=== PATIENT | male | born 1995 | race Caucasian/White ===

== ENCOUNTER 2019-08-14 22:31 | Observation (INO) | payer BC, OTHER ==
[~2019-08-14] VITALS: Ht 177.8 cm; Wt 116.1 kg
[2019-08-14] MEDS ORDERED: ONDANSETRON 4 MG/2 ML (SDV) Z0FRAN IVP ONE (23:00)
[2019-08-14 23:08] LABS: EOSINOPHILS % (AUTO) 0 % (0-10); HEMATOCRIT 49 % (40-54); HEMOGLOBIN 16.5 G/DL (13.3-17.7); LYMPHOCYTES % (AUTO) 8 % (12-44); MEAN CORPUSCULAR HEMOGLOBIN 30 PG (25-34); MEAN CORPUSCULAR HGB CONC 34 G/DL (32-36); MEAN CORPUSCULAR VOLUME 89 FL (80-99); MONOCYTES % (AUTO) 4 % (0-12); NEUTROPHILS % (AUTO) 87 % (42-75); PLATELET COUNT 229 10^3/uL (130-400); RED CELL DISTRIBUTION WIDTH 12.1 % (10.0-14.5); WHITE BLOOD COUNT 11.9 10^3/uL (4.3-11.0)
[2019-08-14 23:09] LABS: BASOPHILS # (AUTO) 0.1 10^3/uL (0.0-0.1); BASOPHILS % (AUTO) 1 % (0-10); MONOCYTES # (AUTO) 0.5 X 10^3 (0.0-1.0); NEUTROPHILS # (AUTO) 10.3 X 10^3 (1.8-7.8)
--- NOTE | 2019-08-14 23:16 | ED Headache ---
General Chief Complaint: Head/Cervical Problems Stated Complaint: FEVER/BACK AND NECK PAIN Nursing Triage Note: Patient states that he began having a severe headache last night. Patient states the headache persisted throughout the night and today. Patient states he began having nausea, vomiting, low grade fever and dizziness. Patient rates his pain at a 10 on the 1-10 pain scale. Nursing Sepsis Screen: No Definite Risk (STACY CARO DO) History of Present Illness Date Seen by Provider: Aug 14, 2019 Time Seen by Provider: 23:00 Initial Comments Onset of headache, neck and upper back pain yesterday. Saw a chiropractor today for the neck pain and had it adjusted w no relief. Afterward, had onset of nausea and vomiting as well as low grade fever. Associated light sensitivity. Denies Hx of headaches or migraines. No known sick contacts. Denies recent injury or recent travel. Denies known exposure to Covid. (STACY CARO DO) Allergies and Home Medications Allergies Coded Allergies: No Allergy Information Available (Unverified , 08/14/19) Patient Home Medication List Home Medication List Reviewed: Yes (MASSIMO CAROEN Fransisco RAMSEY) Review of Systems Review of Systems Constitutional: see HPI, fever, malaise; No weakness Eyes: Pain (behind both eyes), Photophobia Ears, Nose, Mouth, Throat: no symptoms reported Respiratory: no symptoms reported; No cough, No short of breath Cardiovascular: No chest pain, No palpitations Gastrointestinal: No abdominal pain; loss of appetite, nausea, vomiting Musculoskeletal: see HPI, back pain (upper back), neck pain (worse w flexion) Skin: No change in color, No lesions, No rash Psychiatric/Neurological: Headache; Denies Numbness, Denies Paresthesia, Denies Seizure, Denies Weakness (MASSIMO CAROEN Fransisco RAMSEY) Past Sfjkudb-Kivhrg-Dxexxm Hx Past Med/Social Hx: Reviewed Nursing Past Med/Soc Hx (STACY CARO DO) Patient Social History Recent Foreign Travel: No Contact w/Someone Who Travel: No Recent Infectious Disease Expo: No Physical Abuse: No Sexual Abuse: No Mistreated: No Fear: No (LAITHSTINESTACY L ) Physical Exam Vital Signs Vital Signs - First Documented 08/14/19 23:04 Temp 37.5 Pulse 83 Resp 18 B/P (MAP) 124/79 (94) Pulse Ox 97 O2 Delivery Room Air (ARNEL SHEETS MD) Vital Signs Capillary Refill : Less Than 3 Seconds (STACY CARO DO) Height, Weight, BMI Height: '" Weight: lbs. oz. kg; 37.00 BMI Method: General Appearance: WD/WN, no apparent distress HEENT: PERRL/EOMI, normal ENT inspection, TMs normal, pharynx normal, photophobia Neck: limited range of motion, other (+ upper cervical tenderness and + pain w cervical flexion (Brudzinsky)) Cardiovascular: regular rate, rhythm, no edema, no gallop Respiratory: chest non-tender, lungs clear, normal breath sounds Gastrointestinal: non tender, soft; No guarding, No rebound, No tenderness Back: no CVA tenderness, no vertebral tenderness, decreased range of motion (2 to discomfort) Extremities: normal range of motion, non-tender, normal inspection, no pedal edema, no calf tenderness Psychiatric: alert, oriented x 3; No depressed affect, No disoriented x 3, No lethargic Crainal Nerves: normal hearing, normal speech, PERRL; No abnormal speech, No facial asymmetry, No facial droop, No facial paresthesias, No facial weakness, No gaze palsy Motor/Sensory: no motor deficit, no sensory deficit Skin: normal color, warm/dry; No ecchymosis, No jaundice, No rash (STACY WITT DO) Progress/Results/Core Measures Results/Orders Lab Results Laboratory Tests Test 08/14/19 23:00 08/15/19 01:15 08/15/19 02:44 08/15/19 03:26 Range/Units White Blood Count 11.9 H 4.3-11.0 10^3/uL Red Blood Count 5.45 4.35-5.85 10^6/uL Hemoglobin 16.5 13.3-17.7 G/DL Hematocrit 49 40-54 % Mean Corpuscular Volume 89 80-99 FL Mean Corpuscular Hemoglobin 30 25-34 PG Mean Corpuscular Hemoglobin Concent 34 32-36 G/DL Red Cell Distribution Width 12.1 10.0-14.5 % Platelet Count 229 130-400 10^3/uL Mean Platelet Volume 10.0 7.4-10.4 FL Neutrophils (%) (Auto) 87 H 42-75 % Lymphocytes (%) (Auto) 8 L 12-44 % Monocytes (%) (Auto) 4 0-12 % Eosinophils (%) (Auto) 0 0-10 % Basophils (%) (Auto) 1 0-10 % Neutrophils # (Auto) 10.3 H 1.8-7.8 X 10^3 Lymphocytes # (Auto) 1.0 1.0-4.0 X 10^3 Monocytes # (Auto) 0.5 0.0-1.0 X 10^3 Eosinophils # (Auto) 0.0 0.0-0.3 10^3/uL Basophils # (Auto) 0.1 0.0-0.1 10^3/uL Neutrophils % (Manual) 92 % Lymphocytes % (Manual) 3 % Monocytes % (Manual) 1 % Reactive Lymphocytes 4 % Sodium Level 136 135-145 MMOL/L Potassium Level 4.6 3.6-5.0 MMOL/L Chloride Level 99 98-107 MMOL/L Carbon Dioxide Level 23 21-32 MMOL/L Anion Gap 14 5-14 MMOL/L Blood Urea Nitrogen 8 7-18 MG/DL Creatinine 0.94 0.60-1.30 MG/DL Estimat Glomerular Filtration Rate > 60 BUN/Creatinine Ratio 9 Glucose Level 124 H 70-105 MG/DL Calcium Level 9.5 8.5-10.1 MG/DL Corrected Calcium 8.5-10.1 MG/DL Total Bilirubin 0.8 0.1-1.0 MG/DL Aspartate Amino Transf (AST/SGOT) 16 5-34 U/L Alanine Aminotransferase (ALT/SGPT) 26 0-55 U/L Alkaline Phosphatase 77 40-136 U/L Total Protein 8.1 6.4-8.2 GM/DL Albumin 4.6 H 3.2-4.5 GM/DL C-Reactive Protein High Sensitivity 0.17 0.00-0.50 MG/DL Lactic Acid Level 1.42 0.50-2.00 MMOL/L CSF Tube Number 3 CSF Appearance SLT BLDY CSF Color RED CSF WBC 348 H 0-5 CELLS CSF RBC 1773 H 0-0 CELLS CSF Lymphocytes 17 % CSF Mononuclear WBCs 1 % CSF Polynuclear WBCs 82 % CSF Glucose 63 50-80 MG/DL CSF Total Protein 92 H 15-40 MG/DL (BRUEGGEMANN,ARNEL T MD) Micro Results Microbiology 08/14/19 Influenza Types A,B Antigen (RICHARD) - Final, Complete (ARNEL SHEETS MD) My Orders Orders - ARNEL SHEETS MD Csf Cell Count (08/15/19 01:09) Csf Glucose (08/15/19 01:09) Csf Total Protein (08/15/19 01:09) Csf Culture (08/15/19 01:09) Hs C Reactive Protein (08/15/19 01:10) Blood Culture (08/15/19 01:16) Lactic Acid Analyzer (08/15/19 01:16) Promethazine Injection (Phenergan Injec (08/15/19 01:15) Lidocaine 1% Inj 20 Ml (Xylocaine 1% Inj (08/15/19 01:42) (ARNEL SHEETS MD) Medications Given in ED Current Medications Medications Dose Ordered Sig/Chelle Route Start Time Stop Time Status Last Admin Dose Admin Fentanyl Citrate 50 mcg ONCE ONCE IVP 08/14/19 23:30 08/14/19 23:47 DC 08/14/19 23:24 50 MCG Fentanyl Citrate 50 mcg ONCE ONCE IVP 08/15/19 00:15 08/15/19 00:42 DC 08/15/19 00:13 50 MCG Lidocaine HCl 20 ml STK-MED ONCE .ROUTE 08/15/19 01:42 08/15/19 01:48 DC 08/15/19 01:42 20 ML Ondansetron HCl 4 mg ONCE ONCE IVP 08/14/19 23:00 08/14/19 23:05 DC 08/14/19 23:21 4 MG Promethazine HCl 25 mg STK-MED ONCE .ROUTE 08/15/19 01:15 08/15/19 01:22 DC 08/15/19 01:29 12.5 MG (ARNEL SHEETS MD) Vital Signs/I&O 08/14/19 08/15/19 23:04 00:43 Temp 37.5 Pulse 83 61 Resp 18 18 B/P (MAP) 124/79 (94) 118/71 (87) Pulse Ox 97 93 O2 Delivery Room Air Room Air (ARNEL SHEETS MD) Blood Pressure Mean: 94 Progress Progress Note : Progress Note spoke to local () warehouse laborer regarding processing CSF for stat analysis. She spoke to lab tire center supervisor @ [facility] and we were advised to not draw CSF here as the specimens would potentially be invalidated by the time it would take and potential errors in transporting. At advise of "the lab" will send to [facility] for drawing CSF and determination for admission or not. [address] Matthews (STACY CARO DO) Progress Note : Time: 05:41 Progress Note This patient was transferred from [place] because admission was felt likely necessary and Dr. Caro felt LP was necessary to rule out meningitis. He had received Rocephin prior to departure from [place]. CT of the head obtained in [place] was read as normal by stat rad. The room was prepped for lumbar puncture to perform immediately upon patient arrival. Risks and benefits were discussed with the patient and he consented to the procedure. Multiple attempts at lumbar puncture were made by this provider in the usual fashion. However, LP was unsuccessful. Patient tolerated the attempts well. Anesthesia was consulted. The nurse supervisor alum plant was eventually able to obtain 3 tubes of CSF. Unfortunately, the tap was slightly traumatic and blood-tinged. Patient has been afebrile since arrival. He did have episodes of dizziness and nausea. He was provided Phenergan. He had one near syncopal episode when sitting upright for the LP. CSF results were consistent with a traumatic tap but did not suggest high enough numbers to be considered suspicious for bacterial meningitis. Patient's pain had improved significantly despite not receiving fentanyl in quite some time. I discussed disposition with the. He prefers to stay in the hospital through the morning to ensure symptoms do not rebound. Case was discussed with Dr. Uribe who agreed. CRP was added upon arrival to [place]. CRP was normal which would support the rule out of meningitis. (ARNEL SHEETS MD) Diagnostic Imaging Diagonstic Imaging: CT Plain Films/CT/US/NM/MRI: head (STACY CARO DO) Comments CT head viewed by me and [facility] report reviewed. No acute abnormalities were identified. (ARNEL SHEETS MD) Departure Communication (Admissions) Time/Spoke to Admitting Phy: 05:30 Dr. Uribe (ARNEL SHEETS MD) Impression Primary Impression: Acute headache Qualified Codes: R51 - Headache Additional Impressions: Nausea Dizziness Disposition: ADMITTED INPATIENT Condition: Improved Admissions Decision to Admit Reason: Admit from ER (General) Decision to Admit/Date: Aug 15, 2019 Time/Decision to Admit Time: 05:25 (ARNEL SHEETS MD) Transfer Transfer Reason: Exceeds level of care ( lab NOT capable of CSF analysis) Transfer Progress Notes Spoke to Dr Matthews @ [phone], [phone] & [phone] regarding ER to ER transfer for LP and CSF analysis. Explained limitations of the [facility] and concern of drawing the labs here prior to transfer as warehouse laborer in [place] was worried about the quality/ validity and timing of the specimens if drawn in FS, then sent. Dr Sheets agreed to accept for ER to ER transfer w plans to do a timely LP on arrival for CSF analysis. Plans to admit for OBS afterward if Dr Sheets agrees after his evaluation. Pt stable, normal CT head, neg influenza. Headache pain improved (not resolved) after 2 doses of IV Fentanyl. Transfer Facility: [facility] ER Method of Transfer: EMS (STACY CARO DO) Departure-Patient Inst. Referrals: NO,LOCAL PHYSICIAN (PCP/Family) Primary Care Physician STACY CARO DO Aug 14, 2019 23:16 ARNEL SHEETS MD Aug 15, 2019 06:13
[2019-08-14] MEDS ORDERED: fentaNYL INJECTION 100 MCG/2 ML AMP ONE (23:17)
[2019-08-14] MEDS ORDERED: fentaNYL INJECTION 100 MCG/2 ML AMP IVP ONE (23:30)
[2019-08-14 23:33] LABS: ALANINE AMINOTRANSFERASE 26 U/L (0-55); ALBUMIN 4.6 GM/DL (3.2-4.5); ALKALINE PHOSPHATASE 77 U/L (40-136); BILIRUBIN,TOTAL 0.8 MG/DL (0.1-1.0); BUN/CREATININE RATIO 9; CALCIUM 9.5 MG/DL (8.5-10.1); CARBON DIOXIDE 23 MMOL/L (21-32); CHLORIDE 99 MMOL/L (98-107); CREATININE SERUM 0.94 MG/DL (0.60-1.30); GFR ESTIMATED > 60; GLUCOSE 124 MG/DL (70-105); POTASSIUM 4.6 MMOL/L (3.6-5.0); SODIUM 136 MMOL/L (135-145); TOTAL PROTEIN 8.1 GM/DL (6.4-8.2)
[2019-08-14 23:34] LABS: LYMPHOCYTES % (MANUAL) 3 %; MONOCYTES % (MANUAL) 1 %; NEUTROPHILS % (MANUAL) 92 %; REACTIVE LYMPHOCYTES 4 %
[2019-08-15] MEDS ORDERED: fentaNYL INJECTION 100 MCG/2 ML AMP IVP ONE (00:15)
--- NOTE | 2019-08-15 01:09 | NUR ---
PATIENT ARRIVES TO ER TO ROOM 09 [facility]IA [facility]. MOVES SELF OVER TO BED.
[2019-08-15] MEDS ORDERED: PROMETHAZINE INJ 25 MG/ML (PHENERGAN) AMP ONE (01:15)
[2019-08-15] MEDS ORDERED: LIDOCAINE 1% INJ 20 ML 20 ML VIAL ONE (01:42)
--- NOTE | 2019-08-15 03:53 | Anesthesia-Procedure Note ---
Procedures/Interventions Procedure Start/Stop/Diagnosis Date of Procedure: Aug 15, 2019 Start Time: 02:30 Referring Physician: Kortney Preprocedural Diagnosis: headache Brief History Called to ER to assist with LP, after multiple failed attempts. Procedure explained to patient, wishes to proceed. Positioned on side of bed. During first attempt after localization, while beginning to insert pencan pt. began to get dizzy and had momentary loss of consciousness. Needle removed quickly and I was able to maintain him upright. ER staff immediately to bedside to assist. Pt reports feeling has passed, and wishes to proceed. Reprepped and draped and intrathecal access obtained with extremely slow drip of CSF. Only able to obtain 2mLx vial 1&2, and 1mL for vial 3 before flow was lost. Spinal needle manipulated gently but unable to get continued flow. Collected specimen labeled and taken to lab by PRODUCTION POTTER. Stop Time: 03:30 Lumbar Puncture Discussed Risk,Benefits: Yes Patient Consents: Yes Position: L3-4, Sitting Sterile Technique: Yes Fluid Color: pink, blood tinged Spinal Needle Used: Other (22g pencan 5 inch) Procedure Notes prepped with betadine swab x 3 initally, and again after contamination. Localized with 1% Lido 3ML total. -heme, -parasthesia VANDANA WRAY CRNA Aug 15, 2019 03:53
[2019-08-15 04:59] LABS: CSF GLUCOSE 63 MG/DL (50-80); CSF TOTAL PROTEIN 92 MG/DL (15-40)
[2019-08-15 05:10] LABS: APPEARANCE,CSF SLT BLDY; COLOR,CSF RED; CSF TUBE NUMBER 3; LYMPHOCYTES,CSF 17 %; RED BLOOD CELL,CSF 1773 CELLS (0-0); WHITE BLOOD CELL,CSF 348 CELLS (0-5)
--- NOTE | 2019-08-15 06:07 | Diagnostic Imaging Report ---
PROCEDURE: CT head without contrast. TECHNIQUE: Multiple contiguous axial images were obtained through the brain without the use of intravenous contrast. Auto Exposure Controls were utilized during the CT exam to meet ALARA standards for radiation dose reduction. INDICATION: Headache. No prior examinations are available for comparison. FINDINGS: The ventricles and sulci are within normal limits. There is no hydrocephalus or cerebral edema. There is no midline shift or mass effect. There is no intracranial mass, hemorrhage, or extra-axial fluid collection. The visualized paranasal sinuses and mastoid air cells are clear. There are no regional areas of decreased attenuation appreciated to suggest an acute CVA. IMPRESSION: No acute intracranial abnormality. Dictated by: Dictated on workstation # [id number]
--- NOTE | 2019-08-15 06:30 | NUR ---
CATINA CORDERO admitted to room 409-1, with an admitting diagnosis of severe headache,nausea, dizziness, on 08/15/19 from [place] via cart accompanied by staff.CATINA CORDERO introduced to surroundings, call light, bed controls, phone, TV, temperature control, lights, meal times, smoking policy, visitor policy, side rail policy, bathrooms and showers. Patient Rights given to patient in the handbook. CATINA CORDERO verbalizes understanding that [facility] is not responsible for the loss or damage to any personal effects or valuables that are kept in the patients posession during their hospitalization.
[2019-08-15 06:45] VITALS: BP 112/73
[2019-08-15] MEDS ORDERED: MECLIZINE 25 MG (ANTIVERT) TAB PO PRN (07:15)
[2019-08-15] MEDS ORDERED: PROMETHAZINE INJ 25 MG/ML (PHENERGAN) AMP IVP PRN (07:15)
[2019-08-15] MEDS ORDERED: ONDANSETRON 4 MG/2 ML (SDV) Z0FRAN IVP PRN (07:15)
[2019-08-15] MEDS: D5 1/2 NS 1000 ML IV SOLUTION 1,000 ML IV SCH ×2 (07:42→17:06)
[2019-08-15 08:02] VITALS: BP 129/78
[2019-08-15] MEDS: KETOROLAC 15 MG/ML VIAL IVP PRN ×2 (10:40→19:00)
[2019-08-15] MEDS: ACETAMINOPHEN 500 MG TAB (TYLENOL) PO PRN ×2 (11:52→17:53)
[2019-08-15 12:00] VITALS: BP 122/76
--- NOTE | 2019-08-15 14:09 | Short Stay Summary-Hospitalist ---
History of Present Illness HPI/Chief Complaint Pt is a 24yoCm no known PMH who presented to the ER due to fever and headache. He states that on 08/12 he developed neck pain and a headache so he went to the chiropractor for an adjustment. This gave him some relief for 2 hours but then his pain returned. He also developed a fever of 100.6. This remained persistent and he decided to seek evaluation in the ER. He was seen at the [place] ER and by then he was afebrile. Give the concern for meningitis he was transferred to the [place] ER for LP. LP was done and was a traumatic tap but not indicative of bacterial meningitis. He was admitted for symptomatic management. Source: patient Date Seen 08/15/19 Time Seen by a Provider: 13:48 Attending Physician Barry Uribe MD PCP No,Local Physician Referring Physician Date of Admission Aug 15, 2019 at 05:42 Home Medications & Allergies Home Medications Reviewed patient Home Medication Reconciliation performed by pharmacy medication reconciliations electrical controls technician and/or nursing. Patients Allergies have been reviewed. Allergies Allergies Coded Allergies No Allergy Information Available (Unverified08/14/19) Past Jyrccmk-Hevlun-Vjdltt Hx Past Med/Social Hx: Reviewed Nursing Past Med/Soc Hx Patient Social History Alcohol Use: Denies Use Recreational Drug Use: No Smoking Status: Never a Smoker Recent Foreign Travel: No Contact w/other who traveled: No Recent Hopitalizations: No Recent Infectious Disease Expo: No Immunizations Up To Date Date of Influenza Vaccine: Jun 16, 2019 Seasonal Allergies Seasonal Allergies: No Past Medical History History of Blood Disorders: No Family History Reviewed Nursing Family Hx No Pertinent Family Hx Review of Systems Constitutional: fever, malaise EENTM: no symptoms reported Respiratory: no symptoms reported Cardiovascular: no symptoms reported Gastrointestinal: no symptoms reported Genitourinary: no symptoms reported Musculoskeletal: back pain, joint pain (shoulder), neck pain Psychiatric/Neurological: Headache Physical Exam Physical Exam Vital Signs Vital Signs - First Documented 08/14/19 23:04 Temp 37.5 Pulse 83 Resp 18 B/P (MAP) 124/79 (94) Pulse Ox 97 O2 Delivery Room Air Capillary Refill : Less Than 3 Seconds Height, Weight, BMI Height: '" Weight: lbs. oz. kg; 36.72 BMI Method: General Appearance: No Apparent Distress, Obese HEENT: PERRL/EOMI, Moist Mucous Membranes; No Scleral Icterus (L), No Scleral Icterus (R) Neck: Normal Inspection, Other (mild nucahl rigidity) Respiratory: Lungs Clear, No Accessory Muscle Use, No Respiratory Distress Cardiovascular: Regular Rate, Rhythm, No Murmur Gastrointestinal: Normal Bowel Sounds, Non Tender, Soft Extremity: Normal Capillary Refill, No Calf Tenderness, No Pedal Edema Neurologic/Psychiatric: Alert, Oriented x3, No Motor/Sensory Deficits, Normal Mood/Affect Skin: Normal Color, Warm/Dry Results Results/Procedures Labs Laboratory Tests 08/14/19 23:00 Patient resulted labs reviewed. Imaging: Reviewed Imaging Report Imaging Date of Exam:08/14/19 CT HEAD WO PROCEDURE: CT head without contrast. TECHNIQUE: Multiple contiguous axial images were obtained through the brain without the use of intravenous contrast. Auto Exposure Controls were utilized during the CT exam to meet ALARA standards for radiation dose reduction. INDICATION: Headache. No prior examinations are available for comparison. FINDINGS: The ventricles and sulci are within normal limits. There is no hydrocephalus or cerebral edema. There is no midline shift or mass effect. There is no intracranial mass, hemorrhage, or extra-axial fluid collection. The visualized paranasal sinuses and mastoid air cells are clear. There are no regional areas of decreased attenuation appreciated to suggest an acute CVA. IMPRESSION: No acute intracranial abnormality. Short Stay Diagnosis Discharge Diagnosis-Short Stay Admission Diagnosis Viral Meningitis Final Discharge Diagnosis Viral Meningitis Conclusion Plan Viral Meningitis Clinical picture and cell count consistent with viral meningitis Continue symptomatic treatment Await cultures Now afebrile Will likely be able to DC home tomorrow Diagnosis/Problems Diagnosis/Problems (1) Viral meningitis Status: Acute Clinical Quality Measures DVT/VTE Risk/Contraindication: Risk Factor Score Per Nursin RFS Level Per Nursing on Admit: 1=Low/No VTE PPX BARRY URIBE MD Aug 15, 2019 14:09
--- NOTE | 2019-08-15 14:53 | NUR ---
PT CALLED THIS RN INTO ROOM TO LOOK AT RASH NOTED TO PATIENTS SIDE AND BACK. THIS RN ASSESSED PATIENT AND NOTICED TWO FINGER TIP SIZED RED RAISED AREAS. ONE TO PATIENTS RIGHT SIDE AND THE OTHER TO PATIENTS RIGHT SIDE OF BACK. PATIENT STATED THESE TWO AREAS ARE NOT PAINFUL,ITCHY OR IRRITATING IN ANYWAY AT THIS TIME. INSTRUCTED PT TO NOTIFY THIS RN IF THEY BECOMING IRRITATING OR IF MORE SPOTS ARE NOTICED
[2019-08-15 16:00] VITALS: BP 120/81
[2019-08-15 19:51] VITALS: BP 120/81
[2019-08-16 00:05] VITALS: BP 121/78
[2019-08-16] MEDS: ACETAMINOPHEN 500 MG TAB (TYLENOL) PO PRN ×2 (00:05→10:22)
[2019-08-16 04:39] VITALS: BP 118/65
[2019-08-16 04:44] LABS: BASOPHILS % (AUTO) 1 % (0-10); EOSINOPHILS % (AUTO) 0 % (0-10); HEMATOCRIT 46 % (40-54); HEMOGLOBIN 15.2 G/DL (13.3-17.7); LYMPHOCYTES # (AUTO) 1.4 X 10^3 (1.0-4.0); LYMPHOCYTES % (AUTO) 20 % (12-44); MEAN CORPUSCULAR HEMOGLOBIN 31 PG (25-34); MEAN CORPUSCULAR HGB CONC 33 G/DL (32-36); MEAN CORPUSCULAR VOLUME 92 FL (80-99); MEAN PLATELET VOLUME 10.4 FL (7.4-10.4); MONOCYTES # (AUTO) 0.8 X 10^3 (0.0-1.0); MONOCYTES % (AUTO) 11 % (0-12); NEUTROPHILS # (AUTO) 4.7 X 10^3 (1.8-7.8); NEUTROPHILS % (AUTO) 68 % (42-75); PLATELET COUNT 184 10^3/uL (130-400); RED CELL DISTRIBUTION WIDTH 12.7 % (10.0-14.5)
[2019-08-16 04:59] LABS: BUN/CREATININE RATIO 8; CALCIUM 8.2 MG/DL (8.5-10.1); CARBON DIOXIDE 25 MMOL/L (21-32); CHLORIDE 105 MMOL/L (98-107); CREATININE SERUM 1.06 MG/DL (0.60-1.30); GFR ESTIMATED > 60; GLUCOSE 105 MG/DL (70-105); SODIUM 137 MMOL/L (135-145)
[2019-08-16 08:00] VITALS: BP 131/75
--- NOTE | 2019-08-16 10:12 | Discharge Summary ---
Discharge Summary Hospital Course Was the Problem List Reviewed?: Yes Problems/Dx: (1) Viral meningitis Status: Acute Hospital Course Date of Admission: Aug 15, 2019 at 05:42 Admission Diagnosis : Headache Family Physician/Provider: No,Local Physician Date of Discharge: 08/16/19 Discharge Diagnosis: Viral meningitis Hospital Course: Placido Sue is a 24-year-old male who presented with headache and was admitted with viral meningitis. He underwent a lumbar puncture which was consistent with an aseptic meningitis. His symptoms improved with supportive care. He was discharged home in stable condition. He should establish care with her primary care physician. Labs and Pending Lab Test: Laboratory Tests 08/16/19 04:31: White Blood Count 7.0, Red Blood Count 4.99, Hemoglobin 15.2, Hematocrit 46, Mean Corpuscular Volume 92, Mean Corpuscular Hemoglobin 31, Mean Corpuscular Hemoglobin Concent 33, Red Cell Distribution Width 12.7, Platelet Count 184, Mean Platelet Volume 10.4, Neutrophils (%) (Auto) 68, Lymphocytes (%) (Auto) 20, Monocytes (%) (Auto) 11, Eosinophils (%) (Auto) 0, Basophils (%) (Auto) 1, Neutrophils # (Auto) 4.7, Lymphocytes # (Auto) 1.4, Monocytes # (Auto) 0.8, Eosinophils # (Auto) 0.0, Basophils # (Auto) 0.0, Sodium Level 137, Potassium Level 4.0, Chloride Level 105, Carbon Dioxide Level 25, Anion Gap 7, Blood Urea Nitrogen 9, Creatinine 1.06, Estimat Glomerular Filtration Rate > 60, BUN/Creatinine Ratio 8, Glucose Level 105, Calcium Level 8.2L Microbiology 08/15/19 Gram Stain - Final, Resulted 08/15/19 CSF Culture - Preliminary, Resulted No growth 08/14/19 Influenza Types A,B Antigen (RICHARD) - Final, Complete Assessment/Pt Instructions Take medications as prescribed. Establish care with a primary care physician. Discharge Planning: <30 minutes discharge planning Discharge Instructions Discharge Diet: No Restrictions Activity as Tolerated: Yes Discharge Physical Examination Vital Signs Vital Signs Date Time Temp Pulse Resp B/P (MAP) Pulse Ox O2 Delivery O2 Flow Rate FiO2 08/16/19 08:00 36.9 76 20 131/75 (93) 96 Room Air General Appearance: No Apparent Distress, Obese Respiratory: Lungs Clear, Normal Breath Sounds, No Respiratory Distress Cardiovascular: Regular Rate, Rhythm, No Edema, No Murmur Gastrointestinal: Normal Bowel Sounds, Non Tender, Soft Extremity: Normal Inspection, Non Tender, No Pedal Edema Skin: Normal Color, Warm/Dry Neurologic/Psychiatric: Alert, Oriented x3, No Motor/Sensory Deficits, Normal Mood/Affect Allergies: Coded Allergies: No Allergy Information Available (Unverified , 08/14/19) Discharge Summary Date of Admission Aug 15, 2019 at 05:42 Date of Discharge Discharge Date: Aug 16, 2019 Discharge Time: 10:11 Admission Diagnosis Viral Meningitis Discharge Diagnosis (1) Viral meningitis Status: Acute Clinical Quality Measures DVT/VTE Risk/Contraindication: Risk Factor Score Per Nursin RFS Level Per Nursing on Admit: 1=Low/No VTE PPX OTTO GARCIA MD Aug 16, 2019 10:04
[2019-08-16] MEDS: KETOROLAC 15 MG/ML VIAL IVP PRN (10:38)
[2019-08-16 12:00] VITALS: BP 123/67
[2019-08-16 14:50] VITALS: BP 131/75
--- NOTE | 2019-08-16 14:50 | NUR ---
CATINA CORDERO demonstrates understanding of discharge instructions and accurately returns instructions upon questioning. Copy of Post-Discharge Instructions given to PT. CATINA CORDERO is able to manage continuing needs after discharge. Patients belongings returned to PT. Patient discharged from [facility] on 08/16/19 at 1450. CATINA CORDERO left floor via W/C, accompanied by STAFF AND FAMILY PER AUTO.
== END 2019-08-16 14:40 | disposition home or self-care (01) ==
LOC: ER FS 22:36 → 4TH 08-15 05:42
PROVIDERS: ADMIT Family Medicine; ATTEND Family Medicine
DX: A87.9 Viral meningitis, unspecified (principal)
CPT/HCPCS: 36415; 70450; 80048; 80053; 82945; 83605; 84157; 85007; 85025; 85027; 86141; 87040; 87070; 87205; 87804; 89051; G0378